=== PATIENT | male | born 1970 | race African-American/Black ===

== ENCOUNTER 2016-08-29 01:01 | Emergency (ER) | payer OTHER ==
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
== END 2016-08-29 02:17 | disposition home or self-care (01) ==
LOC: CED 01:01
DX: S16.1XXA Strain of muscle, fascia and tendon at neck level, initial encounter (principal); V49.40XA Driver injured in collision with unspecified motor vehicles in traffic accident, initial encounter; Y92.488 Other paved roadways as the place of occurrence of the external cause
CPT/HCPCS: 71020; 72040; 99283